=== PATIENT | male | born 1955 | race Caucasian/White ===

== ENCOUNTER → 2022-03-17 08:32 | Outpatient (BNVA) | payer MEDICARE, SELFPAY | PROVIDERS: PCP Internal Medicine; Visit Provider Nurse Practitioner Family | DX: G47.33 Obstructive sleep apnea (adult) (pediatric) (principal); G47.00 Insomnia, unspecified; Z99.89 Dependence on other enabling machines and devices | CPT/HCPCS: 99212 ==

== ENCOUNTER → 2022-09-20 08:47 | Outpatient (BNVA) | payer MEDICARE, SELFPAY | PROVIDERS: PCP Internal Medicine; Visit Provider Nurse Practitioner Family | DX: G47.33 Obstructive sleep apnea (adult) (pediatric) (principal); G47.00 Insomnia, unspecified; Z99.89 Dependence on other enabling machines and devices | CPT/HCPCS: 99212 ==

== ENCOUNTER 2023-05-16 08:42 | Outpatient (AMB) | payer MEDICARE, SELFPAY ==
--- NOTE | 2023-05-16 08:43 | MHC.OFFVIS ---
Intake Vital Signs 05/16/23 08:45 Height 5 ft 9 in Weight 226 lb 6 oz BMI 33.4 Pulse 82 Pulse Source Pulse Oximeter Pulse Oximetry (%) 99 Oxygen Delivery Method Room Air Intake Visit Reasons: 6 months follow up - Conf Intake Note: Pt presents to the office today for a 6 month follow up. Pt states he is feeling fine. Pt states he is sleeping better and doesn't feel as tired during the day. Allergies cat dander Allergy (Mild, Verified 05/16/23 08:46) Itching rag weed Allergy (Mild, Uncoded 05/16/23 08:46) Itching HPI HPI Comments History of Present Illness Details 67 y/o male patient presents for follow up of KATHERINE on CPAP. CPAP compliance and therapy report (04/16/23-05/15/23) reviewed with the patient. Pt is on APAP [id number]. Usage days 80% and average usage hours 5 hours and 16 min. The median pressure is 8.3, maximum pressure is 13. The residual AHI was 1/hr. He sleeps well with CPAP, however he sleeps on the couch sometimes and not using CPAP. Sometimes he feels he is not getting enough air with CPAP. He uses ambien occasionally. His CPAP makes loud noise, and it has been more 5 years. Pt reports he gained couple of pounds. [facility] Surgical History H/O shoulder surgery Family History Father HTN (hypertension) Mother HTN (hypertension) Social History Alcohol intake: current Alcohol intake frequency: a few times a month Patient Tobacco Use Status: Never used Tobacco Review of Systems Const All systems reviewed & are unremarkable except as noted in HPI and below ENT Reports Normal hearing present Neuro Reports Normal hearing present Physical Exam Vital Signs: Last Vital Signs Pulse 82 05/16/23 08:45 Pulse Ox 99 05/16/23 08:45 Oxygen Delivery Method Room Air 05/16/23 08:45 BMI result Body Mass Index 33.4 Const General: cooperative and healthy appearing Nutritional Appearance: overweight Orientation/consciousness: patient oriented x3 Limitations: no limitations Resp Effort & Inspection: normal respiratory effort and able to speak in complete sentences Neuro General: patient oriented x3, gait normal and moves all extremities Cranial nerves: Yes Bilaterally intact EOM present, Yes Normal facial strength present, Yes Symmetric palate elevation present, Yes Normal hearing present, Yes Ability to bilaterally rotate head present and Yes Ability to bilaterally elevate shoulders present Cognition (Neuro): normal cognition Gait exam (Neuro): Normal gait present Psych Appearance: grossly normal Affect: normal affect Attitude: cooperative Assessment & Plan Assessment & Plan (1) KATHERINE on CPAP: Comment: AHI 24/hr and oxygen benny was 78% Code(s): G47.33 - Obstructive sleep apnea (adult) (pediatric); Z99.89 - Dependence on other enabling machines and devices (2) Insomnia: Code(s): G47.00 - Insomnia, unspecified Plan Continue to use APAP [id number] as patient experiences good clinical effects. Stressed compliance, use CPAP nightly, more than 4 hours. Will have repeat sleep study to assess sleep apnea and for a new CPAP. Advised patient to use ambien 5 mg as needed for insomnia. Sleep hygiene education provided. Orders: Orders RT home sleep study Today G47.00 - Insomnia, unspecified, G47.33 - Obstructive sleep apnea (adult) (pediatric), Z99.89 - Dependence on other enabling machines and devices Medications: Refilled zolpidem 5 mg PO BEDTIME PRN 30 tabs 0RF sleep 6 months Coding Level of Care Code Est Pt Level 3 (09857) Diagnoses KATHERINE on CPAP G47.33; Z99.89 Insomnia G47.00
[2023-05-16 08:45] VITALS: PULSE 82; O2SAT 99; BMI 33.4
== END 2023-05-16 09:05 | disposition home or self-care (01) ==
PROVIDERS: Visit Provider Nurse Practitioner Family
DX: G47.33 Obstructive sleep apnea (adult) (pediatric) (principal); Z99.89 Dependence on other enabling machines and devices; G47.00 Insomnia, unspecified
CPT/HCPCS: 99213

== ENCOUNTER → 2023-05-16 08:42 | Outpatient (BNVA) | payer MEDICARE, SELFPAY | PROVIDERS: Visit Provider Nurse Practitioner Family | DX: G47.33 Obstructive sleep apnea (adult) (pediatric) (principal); G47.00 Insomnia, unspecified; Z99.89 Dependence on other enabling machines and devices | CPT/HCPCS: 99212 ==

== ENCOUNTER → 2023-06-22 07:53 | Outpatient (REF) | payer MEDICARE, SELFPAY | LOC: HO.SL 07:53 | PROVIDERS: PCP Internal Medicine; Visit Provider Nurse Practitioner Family | DX: G47.33 Obstructive sleep apnea (adult) (pediatric) (principal); G47.00 Insomnia, unspecified; Z99.89 Dependence on other enabling machines and devices | CPT/HCPCS: 95806 ==

== ENCOUNTER → 2023-06-22 08:01 | Outpatient (BNV) | payer MEDICARE, SELFPAY | PROVIDERS: PCP Internal Medicine; Visit Provider Internal Medicine | DX: G47.33 Obstructive sleep apnea (adult) (pediatric) (principal) | CPT/HCPCS: 95806 ==

== ENCOUNTER 2024-04-26 08:13 | Outpatient (AMB) | payer MEDICARE, SELFPAY ==
--- NOTE | 2024-04-26 08:25 | A.OFFVIS_ITS ---
Vital Signs 04/26/24 08:28 Height 5 ft 9 in Intake Visit Reasons: 6 mnts f/u Intake Note: Patient presents for 6 month follow up. Allergies cat dander Allergy (Mild, Verified 04/26/24 08:26) Itching rag weed Allergy (Mild, Uncoded 04/26/24 08:26) Itching HPI Comments Details: 68 y/o male patient presents for follow up of KATHERINE on CPAP. CPAP compliance and therapy report on zachariah (02/15/24-04/26/24) reviewed with the patient. Pt is on APAP [id number]. Usage days 83% and average usage hours 5 hours and 16 min. The median pressure is 8.3, maximum pressure is 13. The residual AHI was 0.5/hr. He was in [place] for 5 weeks and got a URI, so the sleep was erratic during travels. At home he usually gets 8 hours of sleep per night. His mood, diet and memory are good. Will start him on melatonin to avoid Ambien, he is occasionally using it and feels slow to wake in the AM, periodically. 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 Denies nocturia, constipation, and morning headaches. He has seasonal allergies and uses Azelastine, along with immunotherapy allergy shots. Exercises 3-4 times a week, HIT classes, Bike, Rower and treadmill for a total of one hour. He sleeps well with CPAP, however he sleeps on the couch sometimes and forgets to use CPAP sometimes. He cleans his mask and tubing, changes filters as needed. [facility]END[facility] S[facility] TO [facility] Surgical History H/O shoulder surgery Family History Father HTN (hypertension) Mother HTN (hypertension) Social History Alcohol intake: current Alcohol intake frequency: a few times a month Patient Tobacco Use Status: Never used Tobacco Review of Systems Const All systems reviewed & are unremarkable except as noted in HPI and below Physical Exam Const General: cooperative, healthy appearing and no acute distress Nutritional Appearance: average body habitus Orientation/consciousness: patient oriented x3 Eyes Pupils: Equal, round and reactive pupils present Resp Effort & Inspection: normal respiratory effort and able to speak in complete sentences Neuro General: patient oriented x3 and moves all extremities Cranial nerves: Yes CN's II-XII intact bilaterally, Yes Facial sensation intact/muscles of mastication intact, Yes Equal, round and reactive pupils present, Yes Normal accommodation reflex present, Yes Bilaterally intact EOM present, Yes Nystagmus not present, Yes Normal facial strength present, Yes Midline tongue present, Yes Ability to bilaterally rotate head present and Yes Ability to bilaterally elevate shoulders present Motor exam (neuro): 5/5 motor strength present throughout and Normal motor muscle tone present throughout Deep tendon reflexes (DTR's): Right triceps reflex intensity grade: 2+, Left triceps reflex intensity grade: 2+, Rt Biceps (C5, C6): 2+, Left biceps reflex intensity grade: 2+, Right brachioradialis reflex intensity grade: 2+, Left brachioradialis reflex intensity grade: 2+, Right patellar reflex intensity grade: 2+ and Left patellar reflex intensity grade: 2+ Coordination: [id number] test normal Results Reviewed Results Reviewed: CPAP compliance and therapy report on zachariah (02/15/24-04/26/24) reviewed with the patient. Pt is on APAP [id number]. Usage days 83% and average usage hours 5 hours and 16 min. The median pressure is 8.3, maximum pressure is 13. The residual AHI was 0.5/hr. Assessment & Plan Assessment & Plan (1) KATHERINE on CPAP: Comment: AHI 24/hr and oxygen benny was 78% Code(s): G47.33 - Obstructive sleep apnea (adult) (pediatric); Z99.89 - Dependence on other enabling machines and devices Category: Medical (2) Environmental allergies: Code(s): Z91.09 - Other allergy status, other than to drugs and biological substances Category: Medical (3) Sleep difficulties: Code(s): G47.9 - Sleep disorder, unspecified Category: Medical Plan Continue to use APAP [id number] as patient experiences good clinical effects. Stressed compliance, use CPAP nightly, more than 4 hours, every night even when on the couch or napping through the day. Advised patient to stop ambien 5 mg and start using melatonin if having difficulty with falling asleep or staying asleep. Patient Education: Sleep environment should be dark, no devices. Reading is great if able to with a night light. Magnesium is helpful for sore muscles and aches post workout. Monitor intake of water daily, yet stop fluid intake 2-4 hours prior to bedtime. Allergies: Rag weed, cats, avoid triggers, continue Azelastine PRN and Quarterly Immunotherapy shots as needed. Follow up in 6 months or sooner if needed. Coding Level of Care Code Est Pt Level 3 (66772) Diagnoses KATHERINE on CPAP G47.33; Z99.89 Environmental allergies Z91.09 Sleep difficulties G47.9 Time Spent (min) 30 Comment improving sleep apnea
== END 2024-04-26 08:53 | disposition home or self-care (01) ==
PROVIDERS: PCP Internal Medicine; Visit Provider Physician Assistant Medical
DX: G47.33 Obstructive sleep apnea (adult) (pediatric) (principal); Z99.89 Dependence on other enabling machines and devices; Z91.09 Other allergy status, other than to drugs and biological substances; G47.9 Sleep disorder, unspecified
CPT/HCPCS: 99213

== ENCOUNTER → 2024-04-26 08:13 | Outpatient (BNVA) | payer MEDICARE, SELFPAY | PROVIDERS: PCP Internal Medicine; Visit Provider Physician Assistant Medical | DX: G47.33 Obstructive sleep apnea (adult) (pediatric) (principal); G47.9 Sleep disorder, unspecified; Z91.09 Other allergy status, other than to drugs and biological substances; Z99.89 Dependence on other enabling machines and devices | CPT/HCPCS: 99212 ==

== ENCOUNTER 2024-12-21 07:30 | Outpatient (AMB) | payer MEDICARE, SELFPAY ==
--- OUTSIDE RECORDS SUMMARY | 2024-12-21 07:32 | XMS_ITS | Clinical Summary ---
Author Organization [facility] Address [address] [place] [id number] Care Team Providers Care Market Manager Name Role Phone Pcp, Samantha MD Primary Care Provider Unavailabl e Medications oxyCODONE (OXY-IR) 5 mg capsule Take 1 capsule (5 mg total) by mouth every 4 (four) hours as needed for moderate pain (4-7) for up to 10 doses. Max Daily Amount: 30 mg 10 capsule 06/08/2023 Active Social History Tobacco Use Types Packs/Day Years Used Date Smoking Tobacco: Never Assessed Sex and Gender Information Value Date Recorded Sex Assigned at Not on file Legal Sex Male 11:02 AM EST Gender Identity Not on file Sexual Orientation Not on file Plan of Treatment Health Maintenance Due Date Last Done Comments CT Colonography 1956 Colonoscopy 1956 Colorectal Cancer Screening 1956 FIT-DNA (Cologuard) 1956 FIT 1956 FOBT 1956 Flex Sigmoidoscopy - 5y 1956 HIV Screening 1956 DTaP,Tdap,and Td Vaccines (1 - Tdap) 1974 Pneumococcal Vaccine, 50+ Ye ars (1 of 1 - PCV) 2006 Zoster Vaccines (1 of 2) 2006 COVID-19 Vaccine ( - 2023-2 5 season) 2024 Influenza Vaccine (#1) 2025 HPV Vaccines Aged Out No longer eligi ble based on patient's age to complete this topic Hepatitis A Vaccines Aged Out No long er eligible based on patient's age to complete this topic Meningococcal Vaccine Aged Out No elizabeth rosmery eligible based on patient's age to complete this topic Care Teams Market Manager Relationship Specialty Start Date End Date Pcp, MD Samantha [address] [place] [address] PCP - General 06/19/24
--- OUTSIDE RECORDS SUMMARY | 2024-12-21 07:32 | XMS_ITS | Clinical Summary ---
Author Organization [facility] Address [address] [place] [address] Phone Care Team Providers Care Retail Tire Sales Manager Name Role Phone Jacoby Malloy MD Primary Care Provider [phone] Allergies No known active allergies Social History Tobacco Use Types Packs/Day Years Used Date Smoking Tobacco: Former Alcohol Use Standard Drinks/Week Comments Yes 0 (1 standard drink = 0.6 oz pur e alcohol) Sex and Gender Information Value Date Recorded Sex Assigned at Male 07/04/2024 11:05 AM EST Legal Sex Male 12:33 PM EST Gender Identity Male 07/04/2024 11:05 AM EST Sexual Orientation Straight 07/04/2024 11 :05 AM EST Obstetrics History Last Filed Vital Signs Vital Sign Reading Time Taken Comments Blood Pressure 140/84 08/18/2023 11:47 AM EDT Sitting L Arm Pulse 80 08/18/2023 11:47 AM EDT Temperature - - Respiratory Rate - - Oxygen Saturation - - Inhaled Oxygen Concentration - - Weight 99.4 kg (219 lb 3.2 oz) 08/18/2023 11:47 AM EDT Height - - Body Mass Index - - Plan of Treatment Health Maintenance Due Date Last Done Comments Abdominal Aortic Aneurysm (AAA) Screen 12/06/2023 Cholesterol Screening (Lipid Panel) 12/06/2023 Colorectal Cancer Screening: Colonoscopy 12/06/2023 Falls Risk Assessment 12/06/2023 Hepatitis C Screening 12/06/2023 Medicare Annual Wellness Visit 12/06/2023 Social Influencers of Health Screening 12/06/2023 Depression Screening 05/09/2024 COVID-19 Vaccine ( season) 2024 01/19/2024, 01/21/2023, 01/19/2022, Additional history exists Influenza Vaccine (#1) 2025 , 02/04/2022, 02/25/2021, Additional history exists DTaP,Tdap,and Td Vaccines (3 - Td or Tdap) 03/06/2030 03/06/2020, 01/09/2016 RSV Immunization Adult Patients (1 - 1-dose 75+ series) 12/18/2031 Zoster Vaccines Completed 07/08/2018, 04/24/2018 Pneumococcal Vaccine: 50+ Years Completed 05/05/2022 HIB Vaccines Aged Out No longer eligi ble based on patient's age to complete this topic HPV Vaccines Aged Out No longer eligi ble based on patient's age to complete this topic Hepatitis A Vaccines Aged Out No long er eligible based on patient's age to complete this topic Hepatitis B Vaccines Aged Out No long er eligible based on patient's age to complete this topic IPV Vaccines Aged Out No longer eligi ble based on patient's age to complete this topic MMR Vaccines Aged Out No longer eligi ble based on patient's age to complete this topic Meningococcal ACWY Vaccine Aged Out N o longer eligible based on patient's age to complete this topic Meningococcal B Vaccine Aged Out No l onger eligible based on patient's age to complete this topic RSV Immunization Patients Under 20 months Aged Out No longer eligible based on patient's age to complete this topic Varicella Vaccines Aged Out No longer eligible based on patient's age to complete this topic Insurance MEDICARE [facility] Care Teams Retail Tire Sales Manager Relationship Specialty Start Date End Date Jacoby Malloy MD [address] [place] [id number] PCP - General 08/18/23
--- OUTSIDE RECORDS SUMMARY | 2024-12-21 07:32 | XMS_ITS ---
Author Name [facility] Organization Unknown History of Medication Use Medication Directions Dispensed Refills Start Date End Date Stat oxyCODONE (OXY-IR) 5 mg capsule Take 1 capsule (5 mg total) by mouth every 4 (four) hours as needed for moderate pain (4-7) for up to 10 doses. Max Daily Amount: 30 mg 06/07/2023 06/18/2023 active
--- NOTE | 2024-12-21 07:51 | A.OFFVIS_ITS ---
Vital Signs 12/21/24 07:52 Height 5 ft 9 in Weight 224 lb 6 oz BMI 33.1 BP not taken reason Patient Refused Pulse 71 Pulse Source Pulse Oximeter Pulse Oximetry (%) 98 Oxygen Delivery Method Room Air Intake Visit Reasons: 6 mnts f/u Intake Note: Patient presents follow up Sleep Apnea. Compliance in chart(78/90 days, >=4hrs- 81%,, Average usage- 5hrs 40min, Med pressure- 8.5, Med leaks- 0.0, AHI-1.3). Lunch Cook Required: No Accompanied by: Self / Same As Patient Allergies cat dander Allergy (Mild, Verified 12/21/24 07:57) Itching rag weed Allergy (Mild, Uncoded 04/26/24 08:26) Itching HPI Comments Details: 68 y/o male patient presents for follow up of KATHERINE on CPAP. CPAP compliance and therapy report on zachariah (10/2024-12/2024) reviewed with the patient. Pt is on APAP [id number]. Usage 78/90 days >4 hours is 81% avg usage hours 5 hours 40 min. The median pressure is 8.5, median leaks 0. AHI 1.3/hr. He feels refreshed in the morning with cpap use and usually sleeps about 8 hours per night. His mood, diet and memory are stable. Denies morning headaches, bruxism and RLS symptoms. He did not start melatonin and would like Ambien, he occasionally uses it when he has a difficult time falling asleep. 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 He has seasonal allergies and uses Azelastine, along with immunotherapy allergy shots. Exercises 3-4 times a week, HIT classes, Bike, Rower and treadmill for a total of one hour. Denies nocturia, and constipation. He washes his mask, rinses hoses, changes filters and fills reservoir with water as needed. [facility] Surgical History H/O shoulder surgery Family History Father HTN (hypertension) Mother HTN (hypertension) Social History Alcohol intake: current Alcohol intake frequency: a few times a month Patient Tobacco Use Status: Never used Tobacco Physical Exam Vital Signs: Last Vital Signs Pulse 71 12/21/24 07:52 Pulse Ox 98 12/21/24 07:52 Oxygen Delivery Method Room Air 12/21/24 07:52 BMI result Body Mass Index 33.1 Const General: cooperative, healthy appearing and no acute distress Nutritional Appearance: average body habitus Orientation/consciousness: patient oriented x3 Eyes Pupils: Equal, round and reactive pupils present Resp Effort & Inspection: normal respiratory effort and able to speak in complete sentences Neuro General: patient oriented x3 and moves all extremities Cranial nerves: Yes Facial sensation intact/muscles of mastication intact, Yes Equal, round and reactive pupils present, Yes Normal accommodation reflex present, Yes Bilaterally intact EOM present, Yes Nystagmus not present, Yes Normal facial strength present, Yes Midline tongue present, Yes Ability to bilaterally rotate head present and Yes Ability to bilaterally elevate shoulders present Motor exam (neuro): 5/5 motor strength present throughout and Normal motor muscle tone present throughout Psych Appearance: grossly normal Mental Status: mental status grossly normal Thought process: Normal thought process present Thought content: Normal thought content present Results Reviewed Results Reviewed: CPAP compliance and therapy report on zachariah (10/2024-12/2024) reviewed with the patient. Pt is on APAP [id number]. Usage 78/ days >4 hours is 81% avg usage hours 5 hours 40 min. The median pressure is 8.5, median leaks 0. AHI 1.3/hr. Assessment & Plan Assessment & Plan (1) KATHERINE on CPAP: Comment: AHI 24/hr and oxygen benny was 78% Code(s): G47.33 - Obstructive sleep apnea (adult) (pediatric); Z99.89 - Dependence on other enabling machines and devices Category: Medical (2) Environmental allergies: Code(s): Z91.09 - Other allergy status, other than to drugs and biological substances Category: Medical (3) Sleep difficulties: Code(s): G47.9 - Sleep disorder, unspecified Category: Medical Plan Continue to use APAP [id number] as patient experiences good clinical effects. Advised patient to stop ambien 5 mg and start using melatonin if having difficulty with falling asleep or staying asleep. Magnesium 400mg po at bedtime is helpful for sore muscles post workout. Allergies: Rag weed, cats, avoid triggers, continue Azelastine PRN and Quarterly Immunotherapy shots as needed. Follow up in 6 months. Medications: Refilled zolpidem 5 mg PO BEDTIME PRN 30 tabs 0RF sleep 6 months Patient Instructions: Sleep Hygiene provided: set a scheduled bedtime and wake time to help regulate the circadian rhythm and balance the release of pituitary hormones. Sleep in a dark room, temperatures below 68 degrees, and no devices n bed. Limit caffeinated products 6 hours prior to bed, and limit fluids 2-4 hours prior to bed. Gentle night yoga, diffusing essential oils, and playing soft music can be relaxing. Coding Level of Care Code Est Pt Level 4 (50070) Diagnoses KATHERINE on CPAP G47.33; Z99.89 Environmental allergies Z91.09 Sleep difficulties G47.9
[2024-12-21 07:52] VITALS: PULSE 71; O2SAT 98; BMI 33.1
== END 2024-12-21 08:21 | disposition home or self-care (01) ==
LOC: HO.HSMS 07:30
PROVIDERS: PCP Internal Medicine; Visit Provider Physician Assistant Medical
DX: G47.33 Obstructive sleep apnea (adult) (pediatric) (principal); Z99.89 Dependence on other enabling machines and devices; Z91.09 Other allergy status, other than to drugs and biological substances; G47.9 Sleep disorder, unspecified
CPT/HCPCS: 99214

== ENCOUNTER → 2024-12-21 07:30 | Outpatient (BNVA) | payer MEDICARE, SELFPAY | PROVIDERS: PCP Internal Medicine; Visit Provider Physician Assistant Medical | DX: G47.33 Obstructive sleep apnea (adult) (pediatric) (principal); Z99.89 Dependence on other enabling machines and devices; Z91.09 Other allergy status, other than to drugs and biological substances; G47.9 Sleep disorder, unspecified | CPT/HCPCS: 99212 ==